=== PATIENT | male | born 1940 | race Caucasian/White ===

== ENCOUNTER 2023-02-03 19:41 | Emergency (ER) | payer MEDICARE ==
[2023-02-03 19:49] VITALS: RESP 16; TEMP 97.5
[2023-02-03] MEDS ORDERED: SODIUM CHLORIDE 0.9% 1,000 ML IV STA (20:12)
[2023-02-03] MEDS ORDERED: MORPHINE SULFATE 4 MG/ML SYRINGE IVP STA (20:12)
--- NOTE | 2023-02-03 20:27 | ED ---
Abdominal Pain HPI - General Chief Complaint: Abdominal Pain Stated Complaint: abd pain Time Seen by Provider: 02/03/23 19:57 Source: patient, family, RN notes reviewed, old records reviewed Mode of arrival: ambulatory Limitations: no limitations - History of Present Illness Initial Comments: This is an 83-year-old male to emergency department for evaluation as he presents today for evaluation regards to abdominal pain. Patient has history of ostomy today patient believes that his ostomy may be not functioning properly, concern for his ostomy is working or not that he may have an abdominal obstruction, complaining decreased output today for the family and complaining of abdominal pain. MD Complaint: abdominal pain -: days(s) Location: diffuse Radiation: epigastric, suprapubic Migration to: epigastric, suprapubic Severity: severe Severity scale (1-10): 10 Quality: stabbing, aching Consistency: constant Improves With: nothing Worsens With: nothing Associated Symptoms: nausea Treatments Prior to Arrival: other (0) - Related Data Allergies Allergy/AdvReac Type Severity Reaction Status Date / Time No Known Allergies Allergy Verified 02/03/23 19:43 Review of Systems ROS Statement: Those systems with pertinent positive or pertinent negative responses have been documented in the HPI. ROS Other: All systems not noted in ROS Statement are negative. Past Medical History Past Medical History: GI Bleed, Hyperlipidemia, Hypertension, Thyroid Disorder Additional Past Medical History / Comment(s): back pain, hernia History of Any Multi-Drug Resistant Organisms: None Reported Past Surgical History: Back Surgery, Tonsillectomy Additional Past Surgical History / Comment(s): ostomy bag , eye Past Psychological History: No Psychological Hx Reported Smoking Status: Never smoker Past Alcohol Use History: None Reported Past Drug Use History: None Reported General Exam - General Exam Comments Initial Comments: ostomy does appear to be functioning Limitations: no limitations General appearance: alert, in no apparent distress Head exam: Present: atraumatic, normocephalic, normal inspection Eye exam: Present: normal appearance, PERRL, EOMI. Absent: scleral icterus, conjunctival injection, periorbital swelling ENT exam: Present: normal exam, mucous membranes moist Neck exam: Present: normal inspection. Absent: tenderness, meningismus, lymp hadenopathy Respiratory exam: Present: normal lung sounds bilaterally. Absent: respiratory distress, wheezes, rales, rhonchi, stridor Cardiovascular Exam: Present: regular rate, normal rhythm, normal heart sounds. Absent: systolic murmur, diastolic murmur, rubs, gallop, clicks GI/Abdominal exam: Present: soft, normal bowel sounds. Absent: distended, tenderness, guarding, rebound, rigid Extremities exam: Present: normal inspection, full ROM, normal capillary refill. Absent: tenderness, pedal edema, joint swelling, calf tenderness Back exam: Present: normal inspection Neurological exam: Present: alert, oriented X3, CN II-XII intact Psychiatric exam: Present: normal affect, normal mood Skin exam: Present: warm, dry, intact, normal color. Absent: rash Course Vital Signs 02/03/23 02/03/23 19:44 23:00 Temperature 97.5 F L Pulse Rate 44 L 58 L Respiratory 16 16 Rate Blood Pressure 173/102 155/96 O2 Sat by Pulse 100 99 Oximetry - Reevaluation(s) Reevaluation #1: 02/03/23 20:26 Record is reviewed Reevaluation #2: 02/03/23 20:26 Patient symptoms are improved Reevaluation #3: 02/03/23 20:26 patient is informed results and questions answered Reevaluation #4: 02/03/23 20:26 Was pt. sent in by a medical professional or institution? @ -no Did you speak to anyone other than the patient for history? @ -no Did you review nursing and triage notes? @ -agree Were old charts reviewed? @ -no Differential Diagnosis? @ -prior EKG interpreted by me (3pts min.)? @ -yes X-rays interpreted by me (1pt min.)? @ -no CT interpreted by me (1pt min.)? @ -yes U/S interpreted by me (1pt. min.)? @ -no What testing was considered but not performed? (CT, X-rays, U/S, labs)? Why? @ -no What meds were considered but not given? Why? @ -no Did you discuss the management of the patient with other professionals? @ -no Did you reconcile home meds? @ -no Was smoking cessation discussed for >3mins.? @ -no Was critical care preformed (if so, how long)? @ -no Were there social determinants of health that impacted care today? How? (Homelessness, low income, unemployed, alcoholism, drug addiction, tr ansportation, low edu. Level, literacy, decrease access to med. care, [facility], rehab)? @ -no Was there de-escalation of care discussed even if they declined? (Discuss DNR or withdrawal of care, Hospice)? @ -no What co-morbidities impacted this encounter? (DM, HTN, Smoking, COPD, CAD, Cancer, CVA, Hep., AIDS, mental health diagnosis, sleep apnea, morbid obesity)? @ -none Was patient admitted / discharged? @ -83 Male to the Emergency Department with nonspecific abdominal pain. CT is negative for any acute cause and pain is controlled and patient can be discharged home Discharge Undiagnosed new problem with uncertain prognosis? @ -no Drug Therapy requiring intensive monitoring for toxicity (Heparin, Nitro, Insulin, Cardizem)? @ -no Were any procedures done? @ -no Diagnosis/symptom? @ -Abdominal pain NOS Acute, or Chronic, or Acute on Chronic? @ -no Uncomplicated (without systemic symptoms) or Complicated (systemic symptoms)? @ -uncomplicated Side effects of treatment? @ -no Exacerbation, Progression, or Severe Exacerbation] @ -no Poses a threat to life or bodily function? @ -no Reevaluation #5: 02/03/23 20:26 Differential Abdominal Pain Women: Appendicitis, Cholecystitis, diverticulosis, ischemic bowel, pancreatitis, hepatitis, UTI, gastroenteritis, AAA, incarcerated hernia, bowel obstruction, constipation, inflammatory bowel, hepatitis, peptic ulcer disease, splenic infarction, perforated viscus, vulvitis, ovarian torsion, PID, kidney stone, placenta abruption, this is not meant to be an all-inclusive list Medical Decision Making - Medical Decision Making 83 Male to the Emergency Department with nonspecific abdominal pain. CT is negative for any acute cause and pain is controlled and patient can be discharged home - Lab Data Result diagrams: 02/03/23 20:26 02/03/23 20:26 Lab Results 02/03/23 02/03/23 02/03/23 Range/Units 20:26 20:26 20:26 WBC 5.1 (3.8-10.6) k/uL RBC 4.64 (4.30-5.90) m/uL Hgb 13.4 (13.0-17.5) gm/dL Hct 40.7 (39.0-53.0) % MCV 87.7 (80.0-100.0) fL MCH 28.9 (25.0-35.0) pg MCHC 32.9 (31.0-37.0) g/dL RDW 15.5 (11.5-15.5) % Plt Count 216 (150-450) k/uL MPV 8.2 Neutrophils % 71 % Lymphocytes % 17 % Monocytes % 7 % Eosinophils % 2 % Basophils % 1 % Neutrophils # 3.6 (1.3-7.7) k/uL Lymphocytes # 0.9 L (1.0-4.8) k/uL Monocytes # 0.3 (0-1.0) k/uL Eosinophils # 0.1 (0-0.7) k/uL Basophils # 0.0 (0-0.2) k/uL Sodium 131 L (137-145) mmol/L Potassium 4.2 (3.5-5.1) mmol/L Chloride 96 L (98-107) mmol/L Carbon Dioxide 27 (22-30) mmol/L Anion Gap 8 mmol/L BUN 14 (9-20) mg/dL Creatinine 0.97 (0.66-1.25) mg/dL Est GFR (CKD-EPI)AfAm 84 (>60 ml/min/1.73 sqM) Est GFR (CKD-EPI)NonAf 73 (>60 ml/min/1.73 sqM) Glucose 110 H (74-99) mg/dL Plasma Lactic Acid William 1.1 (0.7-2.0) mmol/L Calcium 9.6 (8.4-10.2) mg/dL Total Bilirubin 1.0 (0.2-1.3) mg/dL AST 38 (17-59) U/L ALT 32 (4-49) U/L Alkaline Phosphatase 69 (38-126) U/L Total Protein 7.1 (6.3-8.2) g/dL Albumin 4.2 (3.5-5.0) g/dL Amylase 100 (30-110) U/L Lipase 154 (23-300) U/L - Radiology Data Radiology results: report reviewed (CT abdomen and pelvis is negative for acute disease), image reviewed Disposition Clinical Impression: Abdominal pain Disposition: HOME SELF-CARE Condition: Good Instructions (If sedation given, give patient instructions): Abdominal Pain (ED) Is patient prescribed a controlled substance at d/c from ED?: No Referrals: Jose Lux MD [Primary Care Provider] - 1-2 days Time of Disposition: 21:00
--- NOTE | 2023-02-03 20:39 | CT ---
EXAMINATION TYPE: CT abdomen pelvis wo con CT DLP: 372.4 mGycm, Automated exposure control for dose reduction was used. DATE OF EXAM: 02/03/2023 8:27 PM COMPARISON: None. CLINICAL INDICATION:Male, 83 years old with history of abdominal pain; Ostomy bag placed x7 months ag o, abdominal pain x 1 day. TECHNIQUE: Axial CT of the abdomen and pelvis. Sagittal and coronal reformats were created on a [employer] workstation. Contrast used: None Oral contrast used: without Oral Contrast FINDINGS: LOWER CHEST: Left basilar atelectasis. ABDOMEN LIVER: Left hepatic lobe 2.0 cm hypodensity near the hepatic dome with internal attenuation consisten t with a simple cyst. Additional scattered hepatic cysts are noted. Noncirrhotic morphology. GALLBLADDER AND BILE DUCTS: Unremarkable. PANCREAS: Normal for technique SPLEEN: Unremarkable. ADRENAL GLANDS: Unremarkable. KIDNEYS AND URETERS: Bilateral renal cysts, largest in the left lower pole measures 4 cm. PELVIS BLADDER: Unremarkable REPRODUCTIVE: Prostatomegaly, prostate measures 5.4 cm in width. ABDOMEN & PELVIS STOMACH AND BOWEL: Large hiatal hernia with intrathoracic stomach. The first through third portions o f the duodenum protruding through the hernia defect. Small bowel is normal in caliber. Right lower qu adrant ostomy is normal in appearance. Postsurgical changes from partial colectomy, residual rectosig moid stump is normal in appearance. No evidence of bowel obstruction. PERITONEUM: No evidence of pneumoperitoneum or free fluid. VASCULATURE: Severe aortobiiliac calcified atherosclerosis. Infrarenal abdominal aortic aneurysm [place] uring up to 3.5 cm in width (series 201, image 22). Focal outpouching of the distal infrarenal abdomi nal aorta with linear intraluminal calcification (series 201, image 27) may represent a short segment of dissection with thrombosis/calcification of the false lumen. Distal portions of the abdominal aor ta are ectatic. MUSCULOSKELETAL: The level discogenic and degenerative changes of the lumbar spine. Vertebroplasty ch anges of T12 and T11 are partially visualized. Diffuse osteopenia. LYMPH NODES: No gross evidence for lymphadenopathy. SOFT TISSUE/ABDOMINAL WALL: Right lower quadrant ostomy without evidence for peristomal hernia. IMPRESSION: 1. No acute intra-abdominal or intra-pelvic process. 2. Large hiatal hernia with intrathoracic stomach containing proximal portions of the duodenum. No ev idence of bowel obstruction 3. Infrarenal abdominal aortic aneurysm measuring up to 3.5 cm. 4. Additional incidental findings as detailed above.
[2023-02-03 21:08] LABS: Basophils % (A) 1 %; Eosinophils # (A) 0.1 k/uL (0-0.7); Eosinophils % (A) 2 %; HCT 40.7 % (39.0-53.0); HGB 13.4 gm/dL (13.0-17.5); Lymphocytes # (A) 0.9 k/uL (1.0-4.8); Lymphocytes % (A) 17 %; MCH 28.9 pg (25.0-35.0); MCHC 32.9 g/dL (31.0-37.0); MCV 87.7 fL (80.0-100.0); Mean Platelet Volume 8.2; Monocytes # (A) 0.3 k/uL (0-1.0); Monocytes % (A) 7 %; Neutrophils # (A) 3.6 k/uL (1.3-7.7); Neutrophils % (A) 71 %; Platelet Count 216 k/uL (150-450); RBC 4.64 m/uL (4.30-5.90); RDW 15.5 % (11.5-15.5); WBC 5.1 k/uL (3.8-10.6)
[2023-02-03 21:22] LABS: ALT 32 U/L (4-49); AST 38 U/L (17-59); African American GFR (CKD) 84 (>60 ml/min/1.73 sqM); Albumin 4.2 g/dL (3.5-5.0); Alkaline Phosphatase 69 U/L (38-126); Amylase 100 U/L (30-110); Anion Gap 8 mmol/L; Blood Urea Nitrogen 14 mg/dL (9-20); Calcium 9.6 mg/dL (8.4-10.2); Carbon Dioxide 27 mmol/L (22-30); Chloride 96 mmol/L (98-107); Glucose 110 mg/dL (74-99); Lipase 154 U/L (23-300); Non-African American GFR(CKD) 73 (>60 ml/min/1.73 sqM); Potassium 4.2 mmol/L (3.5-5.1); Sodium 131 mmol/L (137-145); Total Protein 7.1 g/dL (6.3-8.2)
[2023-02-04 06:56] VITALS: BP 155/96; PULSE 58
== END 2023-02-03 23:00 | disposition home or self-care (01) ==
LOC: EC 19:41
DX: R10.84 Generalized abdominal pain (principal); I10 Essential (primary) hypertension
CPT/HCPCS: 36415; 80053; 82150; 83605; 83690; 85025; 74176; 99284; 96374; 96361; J2270